=== PATIENT | male | born 1975 | race African-American/Black ===

== ENCOUNTER 2024-03-19 05:15 | Emergency (ER) | payer SELFPAY ==
[~2024-03-19] VITALS: Ht 180.3 cm; Wt 102.0 kg
[2024-03-19 05:25] VITALS: TEMP 36.9; O2SAT 99
[2024-03-19 05:28] VITALS: O2SAT 99
[2024-03-19] MEDS ORDERED: IBUP-2029 MT (07:22)
[2024-03-19 07:37] VITALS: BP 110/67; PULSE 77; RESP 18
[2024-03-19] MEDS: IBUPROFEN 600MG TABLET PO ONE (07:37)
== END 2024-03-19 07:45 | disposition home or self-care (01) ==
LOC: ER 05:15
DX: M25.561 Pain in right knee (principal)
CPT/HCPCS: 73564; 99283